=== PATIENT | female | born 1955 | race Caucasian/White ===

== ENCOUNTER 2021-01-14 21:50 | Observation (INO) | payer OTHER ==
[~2021-01-14] VITALS: Ht 170.2 cm; Wt 82.0 kg
[~2021-01-14 21:50] MED LIST: BLACK COHASH; BLACK COHOSH540 MG PO; CALCIUM 500 + D1 TA1 PO; CLARITIN10 MG PO; FISH OIL CONC1000 MG PO; FLAXSEED OIL1000 MG PO; IBU800 M1 PO; IBUPROFEN400 MG PO; INDERAL 20MG20 MG PO; MULTIPLE VITAMI1 TAB PO; MVI; VITAMIN B12500 MCG PO; VITAMIN B6100 MG PO; VITAMIN C1 TAB PO; VITAMIN C500 MG PO; VITAMIN D32000 IU PO; VITAMIN E1000 U/CAP PO; VITAMIN E200 I1 PO; [UNRECOGNIZED DRUG - OTHER] PO
[2021-01-14] MEDS ORDERED: COZAAR 25MG25 MG/TAB PO (23:36)
[2021-01-14] MEDS ORDERED: ZYRTEC 10MG10 MG PO (23:37)
--- NOTE | 2021-01-14 23:45 | NUR ---
Arrived to room 324 via stretcher/EMS. Oriented to room/policy. Admission assessment complete. Denies pain/nausea/shortness of breath. VS stable. A&Ox3. INT to left forearm flushes without difficulty. Hospitalist RAMSEY Engle at bedside for H&P. Call light in reach. Will monitor.
[2021-01-14 23:58] VITALS: BP 149/64; PULSE 72; TEMP 97.6
[2021-01-15 04:51] VITALS: BP 132/58; PULSE 64; TEMP 97.8
--- NOTE | 2021-01-15 05:00 | NUR ---
Received propranolol from pharmacy. Patient states she is nervous to take it as her blood pressure/heart rate are already low. Held at this time. Will continue to monitor.
--- NOTE | 2021-01-15 05:41 | NUR ---
Rested well later this shift. Denied pain/nausea/shortness of breath/palpitations. VS stable. Tolerated PO. Denies current needs. Call light in reach. Will monitor.
[2021-01-15 06:26] LABS: BASO # 0.1 (0.0-0.2); EOS # 0.1 (0.0-0.7); EOS % 0.7 % (0-4.0); GRAN # 4.5 (1.4-6.5); GRAN % 56.1 % (42.2-75.2); HEMOGLOBIN 12.4 g/dl (12.5-16.0); LYMPH # 2.4 (1.2-3.4); LYMPH % 29.7 % (20.0-51.0); MEAN CELL VOLUME 96 fl (80.0-100.0); MEAN CORPUSCULAR HEMOGLOBIN 33 pg (27.0-31.0); MEAN CORPUSCULAR HGB CONC 34 g/dl (33.0-37.0); MEAN PLATELET VOLUME 9.6 fl (7.4-10.4); MONO % 12.1 % (1.7-9.3); PLATELET COUNT 282 K/mm3 (130-400); RED BLOOD COUNT 3.78 M/mm3 (4.10-5.30); REDCELL DISTRIBUTION WIDTH-CV 12.1 % (11.5-14.5)
[2021-01-15 06:28] LABS: HEMATOCRIT 36.3 % (37.0-47.0)
[2021-01-15 06:38] LABS: CALCIUM 8.8 mg/dL (8.4-10.2); CHOLESTEROL RISK RATIO 3.1; CREATININE, serum 0.65 (0.52-1.25); POTASSIUM 3.6 mmol/L (3.4-5.0)
--- NOTE | 2021-01-15 06:49 | NUR ---
Lying in bed with eyes closed. Opens eyes when name called out. Alert and oriented x4. Denies pain. Says that she has had no palpitations. Is hopeful to get out of the hospital today. Patient says that she did not get to go to sleep until around 0400 and is very tired. Encourage patient to rest. Denies additional needs.
[2021-01-15 07:03] LABS: TROPONIN-I 0.079 ng/mL (0.000-0.035)
[2021-01-15 07:24] VITALS: BP 117/56; PULSE 68; TEMP 97.7
[2021-01-15 11:28] VITALS: BP 127/72; PULSE 65; TEMP 98.1
--- NOTE | 2021-01-15 11:49 | NUR ---
Plan to return home with her spouse Edd . Patient reports that she resides in with her spouse and his is her care support. Patient indicated that she does not have a POA but can make decisions. Patient reports that she does not have any DME use of senior living and denies needing any. Patient PCP is on [place] and reports that it changes. Medications are obtained at [facility] for short term medications [facility] in is most appropriate. Patient was educated on support services. No needs are identified. Will follow for changes in care.
--- NOTE | 2021-01-15 12:37 | NUR ---
Review all discharge instructions with the patient. Denies questions and verbalizes understanding and signs discharge paperwork. Discharge packet provided to the patient. Patient will let staff know when her spouse is here to pick her up. Denies additional needs at this time.
--- NOTE | 2021-01-15 13:15 | NUR ---
Patient calls out and would like anxiety medication. No meds ordered. Speak with the patient and she says that the provider last night talked to her about getting on medication for anxiety to help her get through the situation she is in, patient says that she thought about it further and she thinks that it may be good idea. Explain that I would need to see if the provider would place rx for her to fill, patient has not been on anything in the past for anxiety. Patient says that she will f/u with her PCM further in regards to the medication. Spoke with XU Pederson, and she will talk with Dr. Abernathy and let this nurse know. Patient informed that we would let her know what the decision is. Patient sitting in bed on computer. Says that her spouse will be coming to get her. Denies additional needs.
[2021-01-15] MEDS ORDERED: KLONOPIN 0.5MG0.5 MG PO (13:31)
--- NOTE | 2021-01-15 13:49 | NUR ---
Sitting up in bed. Spouse is almost here to get patient. Patient says that Dr. Abernathy came in and talked with her about medication for anxiety and is calling a prescription in for her. Patient denies additional needs at this time.
--- NOTE | 2021-01-15 14:10 | NUR ---
Patient spouse here to pick her up. Patient ambulates to POV with all personal belongings with HARPREET Beck.
== END 2021-01-15 14:10 | disposition home or self-care (01) ==
LOC: MEDICAL 21:50 → SURG 23:02
PROVIDERS: Nurse Practitioner Family; ADMIT Internal Medicine
DX: R00.2 Palpitations (principal); R77.8 Other specified abnormalities of plasma proteins; I47.1 Supraventricular tachycardia; I10 Essential (primary) hypertension; I34.0 Nonrheumatic mitral (valve) insufficiency; E87.1 Hypo-osmolality and hyponatremia; F43.21 Adjustment disorder with depressed mood; Z79.899 Other long term (current) drug therapy
CPT/HCPCS: G0378; J1650